=== PATIENT | male | born 1995 | race Caucasian/White ===

== ENCOUNTER 2018-08-15 16:04 | Outpatient (REF) | payer OTHER, SELFPAY ==
[2018-08-19 15:27] LABS: Chlamydia Result Negative; GC Result Negative; Specimen Description URINE
== END 2018-08-15 16:24 ==
LOC: LBN 16:04
PROVIDERS: PCP Nurse Practitioner Family; Visit Provider Nurse Practitioner Family
DX: Z11.3 Encounter for screening for infections with a predominantly sexual mode of transmission (principal)
CPT/HCPCS: 87491; 87591

== ENCOUNTER 2020-09-20 08:48 | Outpatient (CLI) | payer BC, SELFPAY ==
[2020-09-21 21:18] LABS: Patient Race White; SARS-CoV-2 RNA Undetected (Undetected); SARS-CoV-2 Specimen Source Nasal
== END 2020-09-20 09:08 ==
PROVIDERS: PCP Nurse Practitioner Family; Visit Provider Nurse Practitioner Family
DX: Z11.59 Encounter for screening for other viral diseases (principal)
CPT/HCPCS: U0003

== ENCOUNTER 2021-04-22 08:09 | Outpatient (CLI) | payer BC, SELFPAY ==
[2021-04-22 12:59] LABS: Anion Gap 7.3 mmol/L (3-11); BUN 13 mg/dL (7-18); CO2 28.7 mmol/L (21.0-32.0); CREATININE 0.8 mg/dL (0.70-1.30); Calcium 9.2 mg/dL (8.5-10.1); Calculated LDL 75 mg/dL (<100); Chloride 106 mmol/L (98-107); Cholesterol 139 mg/dL (<200); Glucose 91 mg/dL (74-106); HDL Cholesterol 55 mg/dL (40-60); Potassium 4.8 mmol/L (3.5-5.1); Sodium 142 mmol/L (136-145); TSH (W/Ref FT4) 2.31 uIU/mL (0.36-3.74); Triglyceride 46 mg/dL (<150)
[2021-04-22 17:47] LABS: FSH 2.2 mIU/mL (1.4-18.1); LH 3.7 mIU/mL (1.5-9.3)
[2021-04-26 10:33] LABS: Testosterone, Total 534 ng/dL (240-950)
== END 2021-04-22 08:10 | disposition home or self-care (01) ==
LOC: LOS 08:13
PROVIDERS: PCP Nurse Practitioner Family; Visit Provider Nurse Practitioner Family
DX: Z00.00 Encounter for general adult medical examination without abnormal findings (principal); Z13.220 Encounter for screening for lipoid disorders; E29.1 Testicular hypofunction
CPT/HCPCS: 36415; 80048; 80061; 84403; 83001; 83002; 84443